=== PATIENT | male | born 1975 | race Caucasian/White ===

== ENCOUNTER 2016-10-31 15:55 | Emergency (ER) | payer BC, SELFPAY ==
[~2016-10-31] VITALS: Ht 193 cm; Wt 87.5 kg
[2016-10-31] MEDS ORDERED: IBUP600T26 PO (16:02)
[2016-10-31] MEDS ORDERED: VALS1TAB46 (16:02)
[2016-10-31] MEDS ORDERED: LIDOCAINE 1% MDV 20ML VIAL SC ONE (16:30)
[2016-10-31] MEDS ORDERED: AUGM875T27 PO (16:46)
[2016-10-31] MEDS ORDERED: NORCOTAB PO (16:46)
[2016-10-31 17:27] VITALS: BP 122/69
== END 2016-10-31 17:26 | disposition home or self-care (01) ==
LOC: M ED 16:56
DX: K04.7 Periapical abscess without sinus (principal); K02.9 Dental caries, unspecified; R59.1 Generalized enlarged lymph nodes; I10 Essential (primary) hypertension; Z87.891 Personal history of nicotine dependence; Z79.899 Other long term (current) drug therapy

== ENCOUNTER → 2018-05-18 | Outpatient (CLI) | payer OTHER ==
[2018-05-18 10:24] LABS: HEMATOCRIT 39.4 % (42.0-52.0); HEMOGLOBIN 12.8 g/dl (13.5-17.5); MEAN CORPUSCULAR HGB CONC 32.5 g/dl (32.0-36.5); MEAN CORPUSCULAR VOLUME 89.1 fl (80.0-96.0); PLATELET COUNT, AUTOMATED 301 10^3/uL (150-450); RED BLOOD COUNT 4.42 10^6/uL (4.30-6.10); RED CELL DISTRIBUTION WIDTH 15.1 % (11.5-14.5); WHITE BLOOD COUNT 11.5 10^3/uL (4.0-10.0)
[2018-05-18 11:04] LABS: ALBUMIN 3.2 GM/DL (3.2-5.2); ALKALINE PHOSPHATASE 100 U/L (45-117); ALT/SGPT 22 U/L (12-78); ANION GAP 5 MEQ/L (8-16); AST/SGOT 20 U/L (7-37); BILIRUBIN,TOTAL 0.2 MG/DL (0.2-1.0); BLOOD UREA NITROGEN 15 MG/DL (7-18); CARBON DIOXIDE LEVEL 31 MEQ/L (21-32); CHLORIDE LEVEL 105 MEQ/L (98-107); CHOLESTEROL LEVEL 160 MG/DL (<200); CREATININE FOR GFR 0.96 MG/DL (0.70-1.30); GLOMERULAR FILTRATION RATE > 60.0 (>60); GLUCOSE, FASTING 84 MG/DL (70-100); HDL CHOLESTEROL 25 MG/DL (>40); LDL CHOLESTEROL 110 MG/DL (<100); NON-HDL-C 135 MG/DL; POTASSIUM SERUM 4.3 MEQ/L (3.5-5.1); PROSTATIC SPECIFIC AG MONITOR 0.1 NG/ML (< 4.0); SODIUM LEVEL 141 MEQ/L (136-145); TESTOSTERONE 189 NG/DL (241-827); TOTAL PROTEIN 6.1 GM/DL (6.4-8.2); TRIGLYCERIDES LEVEL 126 MG/DL (<150)
[2018-05-18 16:36] LABS: ESTIMATED AVERAGE GLUCOSE 105 MG/DL (60-110); HEMOGLOBIN A1c 5.3 %
== END ==
LOC: M LAB 09:43
DX: M25.752 Osteophyte, left hip (principal); M51.34 Other intervertebral disc degeneration, thoracic region; M51.36 Other intervertebral disc degeneration, lumbar region; M25.78 Osteophyte, vertebrae; M12.88 Other specific arthropathies, not elsewhere classified, other specified site; I10 Essential (primary) hypertension; M54.30 Sciatica, unspecified side; Z98.890 Other specified postprocedural states; Z96.698 Presence of other orthopedic joint implants
CPT/HCPCS: 71046

== ENCOUNTER 2018-09-04 11:08 | Emergency (ER) | payer OTHER ==
[~2018-09-04] VITALS: Ht 193 cm; Wt 90.9 kg
[2018-09-04 11:08] VITALS: BP 139/83
[~2018-09-04 11:08] MED LIST: AUGM875T28 PO; HYDR-3715 PO; IBUP-1022 PO; VALS1TAB66
[2018-09-04] MEDS ORDERED: SUBO8MIS (11:13)
[2018-09-04] MEDS ORDERED: LOSA100T50 (11:13)
--- NOTE | 2018-09-04 11:39 | REP ---
Clinical: Trauma. Technique: AP, lateral, bilateral oblique views of the right ankle. Findings: Comminuted oblique nondisplaced fracture of the distal fibular metaphysis appreciated with overlying soft tissue swelling. No other fracture dislocation identified. Impression: Oblique fracture of the distal fibular metaphysis with overlying soft tissue swelling. Electronically Signed by Fady Naidu MD 09/04/2018 11:31 A
== END 2018-09-04 11:55 | disposition home or self-care (01) ==
LOC: M ED 11:08
DX: S82.434 Nondisplaced oblique fracture of shaft of right fibula (principal); X50.9XXA Other and unspecified overexertion or strenuous movements or postures, initial encounter; Y92.009 Unspecified place in unspecified non-institutional (private) residence as the place of occurrence of the external cause; Y93.01 Activity, walking, marching and hiking; I10 Essential (primary) hypertension; F17.210 Nicotine dependence, cigarettes, uncomplicated; Z79.899 Other long term (current) drug therapy

== ENCOUNTER 2021-09-27 12:09 | Emergency (ER) | payer OTHER ==
[~2021-09-27] VITALS: Ht 193 cm; Wt 112.8 kg
[~2021-09-27 12:09] MED LIST changes: +LOSA100T45; +SUBO8MIS
[2021-09-27 12:10] VITALS: BP 146/97
[2021-09-27] MEDS ORDERED: PANT40TA29 PO (12:26)
[2021-09-27] MEDS ORDERED: ARIP1TAB10 PO (12:26)
[2021-09-27] MEDS ORDERED: LORA-674 PO (12:26)
[2021-09-27] MEDS ORDERED: QUET200T2 PO (12:26)
[2021-09-27] MEDS ORDERED: GABA800T4 PO (12:26)
[2021-09-27] MEDS ORDERED: PRAZ1CAP PO (12:26)
[2021-09-27] MEDS ORDERED: BUPR450T PO (12:26)
[2021-09-27] MEDS ORDERED: QUET50TA4 PO (12:26)
[2021-09-27] MEDS ORDERED: HYDR50TA70 PO (12:26)
[2021-09-27] MEDS ORDERED: AMOXICILLIN 500 MG CAP PO ONE (12:45)
[2021-09-27] MEDS ORDERED: AMOX875T PO (12:50)
== END 2021-09-27 13:07 | disposition home or self-care (01) ==
LOC: M ED 12:09
DX: K02.9 Dental caries, unspecified (principal); I10 Essential (primary) hypertension; Z79.899 Other long term (current) drug therapy

== ENCOUNTER → 2021-10-09 | Outpatient (CLI) | payer OTHER ==
[~2021-10-09] MED LIST changes: +AMOX875T PO; +ARIP1TAB10 PO; +BUPR450T PO; +GABA800T4 PO; +HYDR50TA70 PO; +LORA-674 PO; +PANT40TA29 PO; +PRAZ1CAP PO; +QUET200T2 PO; +QUET50TA4 PO
[2021-10-09 13:17] LABS: BASO % 0.5 % (0.0-1.0); EOS # 0.4 10^3/uL (0.0-0.5); EOS % 4.7 % (0.0-3.0); HEMATOCRIT 38.9 % (42.0-52.0); HEMOGLOBIN 12.8 g/dl (13.5-17.5); LYMPH # 2.8 10^3/uL (1.5-5.0); LYMPH % 32.1 % (24.0-44.0); MEAN CORPUSCULAR HEMOGLOBIN 28.4 pg (27.0-33.0); MEAN CORPUSCULAR HGB CONC 32.9 g/dl (32.0-36.5); MEAN CORPUSCULAR VOLUME 86.4 fl (80.0-96.0); MONO # 0.7 10^3/uL (0.0-0.8); MONO % 8.4 % (2.0-8.0); NEUTROPHILS # 4.7 10^3/uL (1.5-8.5); PLATELET COUNT, AUTOMATED 305 10^3/uL (150-450); WHITE BLOOD COUNT 8.7 10^3/uL (4.0-10.0)
[2021-10-09 13:20] LABS: APPEARANCE, URINE CLEAR (CLEAR); BACTERIA, URINE AUTO NEGATIVE (NEGATIVE); BILIRUBIN, URINE AUTO NEGATIVE (NEGATIVE); BLOOD, URINE BLOOD NEGATIVE (NEGATIVE); COLOR, URINE YELLOW (YELLOW); GLUCOSE, URINE (UA) AUTO NEGATIVE (NEGATIVE); KETONE, URINE AUTO NEGATIVE (NEGATIVE); LEUKOCYTE ESTERASE, URINE AUTO NEGATIVE (NEGATIVE); MUCUS, URINE SMALL (NEGATIVE); NITRITE, URINE AUTO NEGATIVE (NEGATIVE); PROTEIN, URINE AUTO NEGATIVE (NEGATIVE); RBC, URINE AUTO 0 /HPF (0-3); SQUAMOUS EPITHELIAL CELL UR AU 0 /HPF (0-6); UROBILINOGEN, URINE AUTO 0.2 mg/dL (0.0-2.0); WBC, URINE AUTO 3 /HPF (0-3)
[2021-10-09 13:46] LABS: ALBUMIN 3.7 GM/DL (3.2-5.2); BLOOD UREA NITROGEN 22 MG/DL (7-18); CARBON DIOXIDE LEVEL 26 MEQ/L (21-32); CHLORIDE LEVEL 112 MEQ/L (98-107); CHOLESTEROL LEVEL 224 MG/DL (<200); CHOLESTEROL RISK RATIO 5.463 (<5); GLOMERULAR FILTRATION RATE > 60.0 (>60); GLUCOSE, FASTING 104 MG/DL (70-100); HDL CHOLESTEROL 41 MG/DL (>40); LDL CHOLESTEROL 146 MG/DL (<100); NON-HDL-C 183 MG/DL; PHOSPHORUS LEVEL 3.5 MG/DL (2.5-4.9); POTASSIUM SERUM 4.6 MEQ/L (3.5-5.1); SODIUM LEVEL 141 MEQ/L (136-145); TRIGLYCERIDES LEVEL 186 MG/DL (<150)
[2021-10-09 14:07] LABS: HEPATITIS B SURFACE ANTIGEN NEGATIVE (NEGATIVE)
[2021-10-09 14:35] LABS: HEPATITIS B CORE ANTIBODY IGM NEGATIVE (NEGATIVE)
[2021-10-09 14:38] LABS: HEPATITIS C VIRUS ABY INDEX > 11.0 INDEX (<0.8)
== END ==
LOC: M LAB 12:06
PROVIDERS: ATTEND Physician Assistant
DX: Z02.2 Encounter for examination for admission to residential institution (principal); Z13.220 Encounter for screening for lipoid disorders

== ENCOUNTER 2022-03-24 22:08 | Emergency (ER) | payer OTHER ==
[~2022-03-24] VITALS: Ht 193 cm; Wt 119.1 kg
[2022-03-25 01:28] LABS: BASO % 0.4 % (0.0-1.0); EOS # 0.4 10^3/uL (0.0-0.5); EOS % 4.1 % (0.0-3.0); HEMATOCRIT 39.9 % (42.0-52.0); LYMPH % 35.1 % (24.0-44.0); MEAN CORPUSCULAR HGB CONC 32.6 g/dl (32.0-36.5); MONO # 0.7 10^3/uL (0.0-0.8); MONO % 8.2 % (2.0-8.0); NEUTROPHILS # 4.4 10^3/uL (1.5-8.5); NEUTROPHILS % 52.1 % (36.0-66.0); PLATELET COUNT, AUTOMATED 275 10^3/uL (150-450); RED BLOOD COUNT 4.64 10^6/uL (4.30-6.10); WHITE BLOOD COUNT 8.4 10^3/uL (4.0-10.0)
[2022-03-25 01:50] LABS: BLOOD UREA NITROGEN 20 MG/DL (7-18); CALCIUM LEVEL 8.7 MG/DL (8.5-10.1); CARBON DIOXIDE LEVEL 26 MEQ/L (21-32); CHLORIDE LEVEL 111 MEQ/L (98-107); CREATININE FOR GFR 0.81 MG/DL (0.70-1.30); GLOMERULAR FILTRATION RATE > 60.0 (>60); GLUCOSE, FASTING 91 MG/DL (70-100); POTASSIUM SERUM 4.5 MEQ/L (3.5-5.1); SODIUM LEVEL 141 MEQ/L (136-145)
[2022-03-25 04:37] VITALS: BP 154/98
== END 2022-03-25 06:00 | disposition left against medical advice (07) ==
LOC: M ED 22:08
DX: Z53.21 Procedure and treatment not carried out due to patient leaving prior to being seen by health care provider (principal)

== ENCOUNTER 2022-04-08 22:23 | Emergency (ER) | payer OTHER ==
[~2022-04-08] VITALS: Ht 193 cm; Wt 116.5 kg
[2022-04-08 22:23] VITALS: BP 144/91
[2022-04-09] MEDS ORDERED: NAPR-837 PO (02:07)
[2022-04-09] MEDS ORDERED: KETOROLAC 60MG 2ML VIAL IM ONE (02:10)
== END 2022-04-09 02:40 | disposition home or self-care (01) ==
LOC: M ED 22:23
DX: S20.211A Contusion of right front wall of thorax, initial encounter (principal); V19.9XXA Pedal cyclist (driver) (passenger) injured in unspecified traffic accident, initial encounter; F32.A Depression, unspecified; F17.200 Nicotine dependence, unspecified, uncomplicated; Y92.410 Unspecified street and highway as the place of occurrence of the external cause; Y93.55 Activity, bike riding; Y99.9 Unspecified external cause status; Z79.899 Other long term (current) drug therapy
CPT/HCPCS: 71046; 71100; 99283; J1885

== ENCOUNTER 2023-01-28 18:55 | Emergency (ER) | payer OTHER ==
[~2023-01-28] VITALS: Ht 193 cm; Wt 113.6 kg
[~2023-01-28 18:55] MED LIST changes: -LOSA100T45; +LOSA100T46; +NAPR-837 PO
[2023-01-28 18:56] VITALS: TEMP 98.7
[2023-01-28] MEDS ORDERED: OMEP40CA5 (19:07)
[2023-01-28] MEDS ORDERED: BUSP30TA (19:08)
[2023-01-28 22:00] VITALS: BP 122/82; O2SAT 98
[2023-01-29] MEDS ORDERED: GABA600T4 (11:34)
[2023-01-29] MEDS ORDERED: BUPR300T92 (11:34)
[2023-01-29] MEDS ORDERED: PRAZ2CAP (11:34)
[2023-01-29] MEDS ORDERED: CEPH500C PO (12:39)
== END 2023-01-28 23:49 | disposition left against medical advice (07) ==
LOC: M ED 18:55
DX: Z53.21 Procedure and treatment not carried out due to patient leaving prior to being seen by health care provider (principal)

== ENCOUNTER 2023-01-29 10:14 | Emergency (ER) | payer OTHER ==
[~2023-01-29] VITALS: Ht 193 cm; Wt 111.1 kg
[~2023-01-29 10:14] MED LIST changes: +BUSP30TA; +OMEP40CA5
[2023-01-29 10:15] VITALS: TEMP 98
[2023-01-29] MEDS ORDERED: BUPR300T92 (11:34)
[2023-01-29] MEDS ORDERED: GABA600T4 (11:34)
[2023-01-29] MEDS ORDERED: PRAZ2CAP (11:34)
[2023-01-29] MEDS ORDERED: CEPHALEXIN 500 MG CAP PO ONE (12:35)
[2023-01-29] MEDS ORDERED: BOOSTRIX VACCINE (TETANUS/DIPHTH/ACEL. PERTUSSIS) 0.5ML SYR IM.IMMUN ONE (12:35)
[2023-01-29] MEDS ORDERED: CEPH500C PO (12:39)
[2023-01-29 12:53] VITALS: BP 133/80; O2SAT 99
== END 2023-01-29 12:56 | disposition home or self-care (01) ==
LOC: M ED 10:14
DX: S61.432A Puncture wound without foreign body of left hand, initial encounter (principal); I10 Essential (primary) hypertension; F17.200 Nicotine dependence, unspecified, uncomplicated; K21.9 Gastro-esophageal reflux disease without esophagitis; W26.0XXA Contact with knife, initial encounter; Z79.810 Long term (current) use of selective estrogen receptor modulators (SERMs); Z79.83 Long term (current) use of bisphosphonates; Z79.899 Other long term (current) drug therapy; Z23 Encounter for immunization

== ENCOUNTER 2023-04-28 16:06 | Emergency (ER) | payer MEDICAID, OTHER, SELFPAY ==
[~2023-04-28] VITALS: Ht 193 cm; Wt 104.7 kg
[~2023-04-28 16:06] MED LIST changes: +BUPR300T92; +CEPH500C PO; +GABA600T4; +LORA-1041 PO; -LORA-674 PO; +PRAZ2CAP
[2023-04-28] MEDS ORDERED: ROSU20TA61 (16:14)
[2023-04-28] MEDS ORDERED: FLUORESCEIN OPHTH 1MG STRIP XX ONE (16:45)
[2023-04-28] MEDS ORDERED: PROPARACAINE 0.5% OPHTH SOL 15ML XX ONE (16:45)
[2023-04-28] MEDS ORDERED: ERYT5OIN25 OS ×2 (17:29→18:37)
[2023-04-28] MEDS ORDERED: MOXI0.5S OS ×2 (17:29→18:37)
[2023-04-28 18:33] VITALS: BP 134/84; TEMP 97.5; O2SAT 96
== END 2023-04-28 18:40 | disposition home or self-care (01) ==
LOC: M ED 16:06
DX: T15.02XA Foreign body in cornea, left eye, initial encounter (principal); W29.3XXA Contact with powered garden and outdoor hand tools and machinery, initial encounter; Y99.0 Civilian activity done for income or pay; I10 Essential (primary) hypertension; K21.9 Gastro-esophageal reflux disease without esophagitis; F19.10 Other psychoactive substance abuse, uncomplicated; Z79.899 Other long term (current) drug therapy

== ENCOUNTER → 2024-04-01 | Outpatient (CLI) | payer BC ==
[~2024-04-01] MED LIST changes: +BUPR-597; -BUPR300T92; -BUPR450T PO; +BUPR450T4 PO; +ERYT5OIN25 OS; +GABA-1490; +GABA-1635 PO; -GABA600T4; -GABA800T4 PO; +MOXI0.5S OS; +ROSU20TA86
[2024-04-01 10:46] LABS: HEMATOCRIT 40.8 % (42.0-52.0); HEMOGLOBIN 13.4 g/dl (13.5-17.5); MEAN CORPUSCULAR HEMOGLOBIN 29.1 pg (27.0-33.0); MEAN CORPUSCULAR HGB CONC 32.8 g/dl (32.0-36.5); MEAN CORPUSCULAR VOLUME 88.7 fl (80.0-96.0); PLATELET COUNT, AUTOMATED 287 10^3/uL (150-450); WHITE BLOOD COUNT 11.2 10^3/uL (4.0-10.0)
[2024-04-01 11:14] LABS: PROSTATIC SPECIFIC AG MONITOR 0.45 NG/ML (< 4.00)
[2024-04-01 11:19] LABS: ALBUMIN 3.9 G/DL (3.2-5.2); ALKALINE PHOSPHATASE 90 U/L (40-129); ALT/SGPT 22 U/L (7.0-40); AST/SGOT 20 U/L (<34); BILIRUBIN,TOTAL 0.4 MG/DL (0.3-1.2); BLOOD UREA NITROGEN 23 MG/DL (9-23); CALCIUM LEVEL 9.6 MG/DL (8.5-10.1); CARBON DIOXIDE LEVEL 28 MMOL/L (20-31); CHLORIDE LEVEL 110 MMOL/L (98-107); CHOLESTEROL LEVEL 217 MG/DL (<200); CHOLESTEROL RISK RATIO 5.42 (<5); GLOMERULAR FILTRATION RATE > 60.0 (>56); GLUCOSE, FASTING 80 MG/DL (60-100); POTASSIUM SERUM 4.3 MMOL/L (3.5-5.1); SODIUM LEVEL 143 MMOL/L (136-145); THYROID STIMULATING HORMONE 1.746 uIU/ML (0.55-4.78); TOTAL 25(OH) VITAMIN D 10.1 NG/ML (20.0-100.0); TOTAL PROTEIN 6.8 G/DL (5.7-8.2); TRIGLYCERIDES LEVEL 90 MG/DL (<150)
[2024-04-01 11:20] LABS: TESTOSTERONE 676 NG/DL (241-827)
[2024-04-01 11:32] LABS: HEMOGLOBIN A1c 5.5 % (4.0-6.0)
== END ==
LOC: M RAD 08:15
PROVIDERS: ATTEND Family Medicine
DX: R53.83 Other fatigue (principal); I10 Essential (primary) hypertension; E03.9 Hypothyroidism, unspecified

== ENCOUNTER → 2024-04-28 | Outpatient (CLI) | payer BC ==
[~2024-04-28] MED LIST changes: +E-Z-GAS II EFFERVESCENT PACKET (SODIUM BICARB./CITRIC ACID/SIMETHICONE) As Ordered ONE; +E-Z-HD 98% w/w 340GM SUSP BTL As Ordered ONE; +E-Z-PAQUE 96% w/w SUSP 176GM BTL As Ordered ONE
== END ==
LOC: M RAD 08:38
PROVIDERS: ATTEND Family Medicine
DX: R10.13 Epigastric pain (principal); K27.9 Peptic ulcer, site unspecified, unspecified as acute or chronic, without hemorrhage or perforation; K21.9 Gastro-esophageal reflux disease without esophagitis; K80.20 Calculus of gallbladder without cholecystitis without obstruction; K44.9 Diaphragmatic hernia without obstruction or gangrene

== ENCOUNTER 2024-07-08 08:49 | Emergency (ER) | payer BC ==
[~2024-07-08] VITALS: Ht 193 cm; Wt 110.4 kg
[~2024-07-08 08:49] MED LIST changes: -E-Z-GAS II EFFERVESCENT PACKET (SODIUM BICARB./CITRIC ACID/SIMETHICONE) As Ordered ONE; -E-Z-HD 98% w/w 340GM SUSP BTL As Ordered ONE; -E-Z-PAQUE 96% w/w SUSP 176GM BTL As Ordered ONE
[2024-07-08] MEDS ORDERED: OMEP-173 (08:58)
[2024-07-08] MEDS ORDERED: SIMV20TA22 (08:58)
[2024-07-08] MEDS ORDERED: LISI5TAB11 (08:58)
[2024-07-08] MEDS ORDERED: MIRT-11 (08:58)
[2024-07-08] MEDS ORDERED: ERGO500029 (08:58)
[2024-07-08 09:56] LABS: BASO # 0.1 10^3/uL (0.0-0.2); BASO % 0.3 % (0.0-1.0); EOS # 1.1 10^3/uL (0.0-0.5); EOS % 7.7 % (0.0-3.0); HEMATOCRIT 41.5 % (42.0-52.0); LYMPH # 2.7 10^3/uL (1.5-5.0); LYMPH % 18.6 % (24.0-44.0); MEAN CORPUSCULAR HEMOGLOBIN 30.3 pg (27.0-33.0); MEAN CORPUSCULAR HGB CONC 33.7 g/dl (32.0-36.5); MEAN CORPUSCULAR VOLUME 89.8 fl (80.0-96.0); MONO # 1.2 10^3/uL (0.0-0.8); MONO % 8.6 % (2.0-8.0); NEUTROPHILS # 9.3 10^3/uL (1.5-8.5); NEUTROPHILS % 64.5 % (36.0-66.0); PLATELET COUNT, AUTOMATED 291 10^3/uL (150-450); RED BLOOD COUNT 4.62 10^6/uL (4.30-6.10); WHITE BLOOD COUNT 14.4 10^3/uL (4.0-10.0)
[2024-07-08] MEDS ORDERED: AMOX875T2 PO (12:06)
[2024-07-08 12:10] VITALS: BP 116/69; TEMP 96.8; O2SAT 97
== END 2024-07-08 12:16 | disposition home or self-care (01) ==
LOC: M ED 08:49
DX: K02.9 Dental caries, unspecified (principal); M79.604 Pain in right leg; R00.0 Tachycardia, unspecified; I10 Essential (primary) hypertension; F17.200 Nicotine dependence, unspecified, uncomplicated; F19.10 Other psychoactive substance abuse, uncomplicated; Z79.2 Long term (current) use of antibiotics; Z79.811 Long term (current) use of aromatase inhibitors; Z79.899 Other long term (current) drug therapy

== ENCOUNTER → 2024-08-31 | Outpatient (CLI) | payer BC ==
[~2024-08-31] MED LIST changes: +AMOX875T2 PO; +ERGO500029; +LISI5TAB11; +MIRT-11; +OMEP-173; +SIMV20TA22
[2024-08-31 06:32] LABS: BASO # 0.1 10^3/uL (0.0-0.2); BASO % 0.5 % (0.0-1.0); EOS # 0.9 10^3/uL (0.0-0.5); HEMATOCRIT 39.7 % (42.0-52.0); HEMOGLOBIN 13.2 g/dl (13.5-17.5); LYMPH % 22.9 % (24.0-44.0); MEAN CORPUSCULAR HGB CONC 33.2 g/dl (32.0-36.5); MEAN CORPUSCULAR VOLUME 90.2 fl (80.0-96.0); MONO # 1.2 10^3/uL (0.0-0.8); MONO % 9.4 % (2.0-8.0); NEUTROPHILS % 59.9 % (36.0-66.0); PLATELET COUNT, AUTOMATED 316 10^3/uL (150-450); WHITE BLOOD COUNT 13.3 10^3/uL (4.0-10.0)
[2024-08-31 06:49] LABS: INR 1.03; PROTHROMBIN TIME 13.8 SECONDS (12.5-14.5)
[2024-08-31 07:05] LABS: ALBUMIN 3.8 G/DL (3.2-5.2); ALKALINE PHOSPHATASE 81 U/L (40-129); ALT/SGPT 23 U/L (7.0-40); AST/SGOT 18 U/L (<34); BILIRUBIN,TOTAL 0.4 MG/DL (0.3-1.2); BLOOD UREA NITROGEN 24 MG/DL (9-23); CALCIUM LEVEL 8.9 MG/DL (8.5-10.1); CARBON DIOXIDE LEVEL 30 MMOL/L (20-31); CHLORIDE LEVEL 104 MMOL/L (98-107); CHOLESTEROL LEVEL 153 MG/DL (<200); CHOLESTEROL RISK RATIO 4.16 (<5); GLOMERULAR FILTRATION RATE > 60.0 (>56); GLUCOSE, FASTING 88 MG/DL (60-100); HDL CHOLESTEROL 36.7 MG/DL (>40); LDL CHOLESTEROL 94.7 MG/DL (<100); NON-HDL-C 116.3 MG/DL; POTASSIUM SERUM 4.4 MMOL/L (3.5-5.1); SODIUM LEVEL 141 MMOL/L (136-145); TOTAL PROTEIN 6.6 G/DL (5.7-8.2); TRIGLYCERIDES LEVEL 108 MG/DL (<150)
== END ==
LOC: M LAB 06:08
PROVIDERS: ATTEND Internal Medicine Cardiovascular Disease
DX: Z01.812 Encounter for preprocedural laboratory examination (principal)

== ENCOUNTER → 2024-12-17 | Outpatient (CLI) | payer BC ==
[~2024-12-17] MED LIST changes: -BUPR-597; +BUPR-766
[2024-12-17 17:01] LABS: PLATELET COUNT, AUTOMATED 328 10^3/uL (150-450)
[2024-12-17 17:21] LABS: PROSTATIC SPECIFIC AG MONITOR 0.5 NG/ML (< 4.00)
[2024-12-17 17:26] LABS: TESTOSTERONE 622.0 NG/DL (241-827)
[2024-12-17 17:30] LABS: ESTIMATED AVERAGE GLUCOSE 111.0 MG/DL (60-110)
[2024-12-17 17:38] LABS: ALT/SGPT 21.0 U/L (7.0-40); AST/SGOT 20.0 U/L (<34); CALCIUM LEVEL 8.7 MG/DL (8.5-10.1); CARBON DIOXIDE LEVEL 24.0 MMOL/L (20-31); CHLORIDE LEVEL 104.0 MMOL/L (98-107); CHOLESTEROL LEVEL 156.0 MG/DL (<200); CHOLESTEROL RISK RATIO 3.85 (<5); CREATININE FOR GFR 1.12 MG/DL (0.70-1.30); GLOMERULAR FILTRATION RATE 79.5 (>56); LDL CHOLESTEROL 97.1 MG/DL (<100); NON-HDL-C 115.5 MG/DL; POTASSIUM SERUM 4.5 MMOL/L (3.5-5.1); SODIUM LEVEL 140.0 MMOL/L (136-145); TRIGLYCERIDES LEVEL 92.0 MG/DL (<150)
== END ==
LOC: M LAB 16:03
PROVIDERS: ATTEND Family Medicine
DX: I10 Essential (primary) hypertension (principal); R53.83 Other fatigue; E03.9 Hypothyroidism, unspecified

== ENCOUNTER 2025-01-01 12:48 | Emergency (ER) | payer BC ==
[~2025-01-01] VITALS: Ht 193 cm; Wt 103.8 kg
[2025-01-01] MEDS ORDERED: IBUP200T46 PO (13:01)
[2025-01-01 14:06] LABS: BASO # 0.1 10^3/uL (0.0-0.2); BASO % 0.4 % (0.0-1.0); EOS # 0.3 10^3/uL (0.0-0.5); EOS % 2.1 % (0.0-3.0); LYMPH # 2.1 10^3/uL (1.5-5.0); LYMPH % 14.5 % (24.0-44.0); MONO # 1.3 10^3/uL (0.0-0.8); MONO % 9.1 % (2.0-8.0); NEUTROPHILS # 10.4 10^3/uL (1.5-8.5); NEUTROPHILS % 73.6 % (36.0-66.0); PLATELET COUNT, AUTOMATED 311 10^3/uL (150-450)
[2025-01-01 14:29] LABS: C REACTIVE PROTEIN QUANTITATIV 3.25 MG/DL (<1.0); CALCIUM LEVEL 8.6 MG/DL (8.5-10.1); CARBON DIOXIDE LEVEL 27 MMOL/L (20-31); CHLORIDE LEVEL 103 MMOL/L (98-107); CREATININE FOR GFR 0.90 MG/DL (0.70-1.30); GLOMERULAR FILTRATION RATE > 90.0 (>56); POTASSIUM SERUM 4.1 MMOL/L (3.5-5.1); SODIUM LEVEL 140 MMOL/L (136-145)
[2025-01-01 14:30] LABS: ERYTHROCYTE SEDIMENTATION RATE 25 mm/hr (0-20)
[2025-01-01] MEDS ORDERED: ISOVUE-370 76% 100 ML VIAL As Ordered ONE (15:44)
[2025-01-01] MEDS: AMPICILLIN SOD/SULBACTAM SOD 3 GM in DEXTROSE 5% (D5W) MINI-BAG PLU 100 ML IV ONE (16:43)
[2025-01-01 17:08] VITALS: O2SAT 98
[2025-01-01 18:04] VITALS: BP 119/79
[2025-01-01 18:11] VITALS: TEMP 97.7
== END 2025-01-01 18:21 | disposition home or self-care (01) ==
LOC: M ED 12:48
DX: K04.7 Periapical abscess without sinus (principal); K21.9 Gastro-esophageal reflux disease without esophagitis; E78.5 Hyperlipidemia, unspecified; I10 Essential (primary) hypertension; Z79.2 Long term (current) use of antibiotics; Z79.899 Other long term (current) drug therapy
CPT/HCPCS: 70491; 80048; 83605; 85025; 85652; 86140; 96365; 96375; 99284; J0295; J1100; Q9967

== ENCOUNTER → 2025-03-14 | Outpatient (REF) | payer BC ==
[~2025-03-14] MED LIST changes: -IBUP-1022 PO; +IBUP200T46 PO; +IBUP600T42 PO
[2025-03-14 19:23] LABS: PSA SCREENING 0.35 NG/ML (< 4.00)
[2025-03-14 19:27] LABS: TOTAL 25(OH) VITAMIN D 38.0 NG/ML (20.0-100.0)
[2025-03-14 19:52] LABS: HIV 1&2 SCREEN NEGATIVE (NEGATIVE)
== END ==
LOC: M SFHCLERA 10:27
PROVIDERS: ATTEND Internal Medicine
DX: Z00.01 Encounter for general adult medical examination with abnormal findings (principal); Z86.19 Personal history of other infectious and parasitic diseases; E56.8 Deficiency of other vitamins